=== PATIENT | male | born 1985 | race Hispanic/Latino ===

== ENCOUNTER 2017-01-14 03:42 | Emergency (ER) | payer MEDICAID, MEDICARE ==
[2017-01-14 04:06] VITALS: BMI 25.8
[2017-01-14] MEDS ORDERED: Oxycodone/Acetaminophen 5/325 mg Tab PO ONE (04:06)
[2017-01-14 04:07] VITALS: BP 141/74; PULSE 95; RESP 16; TEMP 98.4; O2SAT 99
[2017-01-14] MEDS ORDERED: Clindamycin 600 MG in Sodium Chloride 0.9% 100 ML IVPB STA (04:07)
--- NOTE | 2017-01-14 04:23 | ED PDOC ---
HPI: General Adult Time Seen by Provider: 01/14/17 03:49 Chief Complaint (Nursing): Upper Extremity Problem/Injury Chief Complaint (Provider): left hand redness and swelling History Per: Patient History/Exam Limitations: no limitations Onset/Duration Of Symptoms: Days Have you had recent travel within the past 21 days to any of the following countries: [place], [place], [place] or [place]?: No Current Symptoms Are (Timing): Still Present Additional Complaint(s): 31yo male with PMHx including IVDA presents to the ED with c/o left hand redness and swelling. Patient states he has had cellulitis before and thinks he has again. Reports redness for past 4 days. Denies fevers, chills, or any other symptoms. Denies injecting into hand. Past Medical History Reviewed: Historical Data, Nursing Documentation, Vital Signs Vital Signs: Last Vital Signs Temp 98.4 F 01/14/17 04:04 Pulse 95 H 01/14/17 04:04 Resp 16 01/14/17 04:04 BP 141/74 01/14/17 04:04 Pulse Ox 99 01/14/17 04:28 - Medical History PMH: Anxiety, Cardia Arrhythmia (SVT), Depression, Fractures ([place]), Kidney Stones, Chronic Kidney Disease Denies: Diabetes, Hepatitis, HIV, HTN, Seizures, Sexually Transmitted Disease Other PMH: IVDA - Surgical History Surgical History: Appendectomy - Family History Family History: States: No Known Family Hx - Social History Drugs: Other (IVDA ) - Immunization History Hx Tetanus Toxoid Vaccination: No Hx Influenza Vaccination: No Hx Pneumococcal Vaccination: No - Home Medications Home Medications: Ambulatory Orders Medication Instructions Recorded traZODone [Desyrel] 50 mg PO HS PRN #30 tab 09/13/16 Clindamycin [Cleocin] 300 mg PO TID 10 Days 01/14/17 - Allergies Allergies/Adverse Reactions: Allergies Allergy/AdvReac Type Severity Reaction Status Date / Time erythromycin base Allergy RASH Verified 09/09/16 12:03 Review of Systems ROS Statement: Except As Marked, All Systems Reviewed And Found Negative Constitutional: Negative for: Fever, Chills Skin: Positive for: Other (left hand redness and swelling ) Physical Exam - Reviewed Nursing Documentation Reviewed: Yes Vital Signs Reviewed: Yes - Physical Exam Appears: Positive for: Well, No Acute Distress Head Exam: Positive for: ATRAUMATIC, NORMAL INSPECTION, NORMOCEPHALIC Skin: Positive for: Normal Color, Warm, Dry Eye Exam: Positive for: Normal appearance, EOMI, PERRL ENT: Positive for: Normal ENT Inspection Neck: Positive for: Normal, Painless ROM, Supple Cardiovascular/Chest: Positive for: Regular Rate, Rhythm. Negative for: Murmur , Tachycardia Respiratory: Positive for: Normal Breath Sounds. Negative for: Wheezing, Respiratory Distress Gastrointestinal/Abdominal: Positive for: Normal Exam, Bowel Sounds, Soft. Negative for: Tenderness Back: Positive for: Normal Inspection Extremity: Positive for: Other (left hand: mild erythema and swelling, no fluctuance, near full ROM of hand, no streaking, erythema from MCPs to wrist ). Negative for: Deformity Neurologic/Psych: Positive for: Alert, Oriented - Laboratory Results Result Diagrams: 01/14/17 04:20 01/14/17 04:20 - ECG O2 Sat by Pulse Oximetry: 99 Pulse Ox Interpretation: Normal (RA) Medical Decision Making Medical Decision Makin: Impression: mild hand cellulitis Plan: Labs clindamycin 600mg IVPB XR right wrist reassess 515AM: Will refer patient to clinic for wound check in 2 days, return precuations given. Scribe Attestation: Documented by Vu Banerjee acting as a scribe for Adrian Rico MD. Provider Scribe Attestation: All medical record entries made by the Scribe were at my direction and personally dictated by me. I have reviewed the chart and agree that the record accurately reflects my personal performance of the history, physical exam, medical decision making, and the department course for this patient. I have also personally directed, reviewed, and agree with the discharge instructions and disposition. Disposition - Clinical Impression Clinical Impression: Cellulitis of left hand - Disposition Referrals: [facility] [Outside] Disposition Time: 05:15 Condition: STABLE Additional Instructions: Please followup with the clinic in two days for wound recheck or return to the E.D. Prescriptions: Clindamycin [Cleocin] 300 mg PO TID 10 Days Instructions: Clindamycin (By mouth), Cellulitis (ED)
[2017-01-14 04:27] LABS: BASO # 0.1 K/uL (0.0-0.2); BASO % 0.7 % (0.0-2.0); EOS # 0.1 K/uL (0.0-0.7); EOS % 1.4 % (0.0-4.0); HEMATOCRIT 38.9 % (35.0-51.0); LYMPH # 2.5 K/uL (1.0-4.3); LYMPH % 22.4 % (20.0-40.0); MEAN CELL VOLUME 83.7 fl (80.0-94.0); MEAN CORPUSCULAR HEMOGLOBIN 28.2 pg (27.0-31.0); MEAN CORPUSCULAR HGB CONC 33.7 g/dL (33.0-37.0); MEAN PLATELET VOLUME 9.7 fl (7.2-11.7); MONO # 0.7 K/uL (0.0-0.8); MONO % 6.7 % (0.0-10.0); NEUT # 7.5 K/uL (1.8-7.0); NEUT % 68.8 % (50.0-75.0)
[2017-01-14 04:41] LABS: BLOOD UREA NITROGEN 14 mg/dl (9-20); CALCIUM 9.1 mg/dL (8.4-10.2); CARBON DIOXIDE 27 mmol/L (22-30); CHLORIDE 105 mmol/L (98-107); GFR AFRICAN-AMERICAN > 60; GLUCOSE,RANDOM 104 mg/dL (75-110); POTASSIUM 3.8 MMOL/L (3.6-5.0); SODIUM 146 mmol/l (132-148)
== END 2017-01-14 06:34 | disposition home or self-care (01) ==
LOC: H.ER 03:42
DX: L03.114 Cellulitis of left upper limb (principal)